=== PATIENT | female | born 1970 | race Caucasian/White ===

== ENCOUNTER 2022-05-06 15:44 | Emergency (ER) | payer OTHER ==
[~2022-05-06] VITALS: Ht 170.2 cm; Wt 84.5 kg
[2022-05-06 19:02] VITALS: BP 145/93
[2022-05-06] MEDS ORDERED: CYCL-837 PO (22:02)
[2022-05-06] MEDS ORDERED: IBUP600T27 PO (22:02)
== END 2022-05-06 23:04 | disposition home or self-care (01) ==
LOC: ER 15:47
DX: S46.212A Strain of muscle, fascia and tendon of other parts of biceps, left arm, initial encounter (principal); S83.92XA Sprain of unspecified site of left knee, initial encounter; X58.XXXA Exposure to other specified factors, initial encounter; Y93.89 Activity, other specified; Y92.89 Other specified places as the place of occurrence of the external cause; Y99.8 Other external cause status
CPT/HCPCS: 93005; 93971